=== PATIENT | male | born 1990 | race Caucasian/White ===

== ENCOUNTER 2025-01-30 19:13 | Emergency (ER) | payer SELFPAY ==
[2025-01-30] MEDS: Fluorescein 1 MG Ophth Strip EYERT ONE (20:02)
== END 2025-01-30 20:06 | disposition home or self-care (01) ==
LOC: JD.ED 19:13
DX: H10.31 Unspecified acute conjunctivitis, right eye (principal)
CPT/HCPCS: 99283; A9270; 99282; J3490